=== PATIENT | female | born 1965 | race African-American/Black ===

== ENCOUNTER 2017-04-01 14:15 | Emergency (ER) | payer SELFPAY ==
[~2017-04-01 14:15] MED LIST: ABILIFY; ABILIFY15 MG PO; ADVAIR 2501 DISK W/D IH; ADVAIR 25028 BLISTER INH; ALBUTEROL SULF8.5 GM IH; ALBUTEROL2.5 MG/3 M IH; ARIMIDEX1 M1 PO; ARIMIDEX1 MG PO; BACTRIM DS TABL1 TAB PO; BIPOLAR MEDS; BUSPAR10 MG PO; CLONAZEPAM0.5 M2 PO; COMPAZINE10 MG PO; CYCLOBENZAPRINE10 M1 PO; CYCLOBENZAPRINE10 MG PO; DOXEPIN HCL25 M1 PO; FAMOTIDINE20 M1 PO; FERROUS SULFATE; FLAGYL500 MG PO; FLEXERIL10 MG PO; HYDROXAZINE; IRON1 TAB PO; IRON325 M3 PO; KEFLEX500 M4 PO; MACROBID 100 M100 MG PO; MEDROL4 MG/DOSE- PO; NORVASC5 M2 PO; OMEPRAZOLE20 M3 PO; PERCOCET 5-3251 EACH PO; PERCOCET 5/3251 TAB PO; PERCOCET 5MG/AP1 TAB PO; PRISTIQ100 MG PO; PROVENTIL HFA6.7 GM IH; REMERON15 M1 PO; RISPERDAL1 M1 PO; SINGULAIR10 MG PO; SKELAXIN800 M3 PO; TOPAMAX50 M3 PO; TRAMADOL HCL50 M2 PO; ZOFRAN4 MG PO; [UNRECOGNIZED DRUG - OTHER]; [UNRECOGNIZED DRUG - OTHER] PO
[2017-04-01 14:55] LABS: URINE BILIRUBIN NEGATIVE (NEG); URINE BLOOD NEGATIVE (NEG); URINE GLUCOSE (UA) NEGATIVE (NEG); URINE KETONE NEGATIVE (NEG); URINE LEUKOCYTE ESTERASE POSITIVE (NEG); URINE NITRITE NEGATIVE (NEG); URINE PH 6.5 (5.0-8.0); URINE PROTEIN NEGATIVE (NEG)
[2017-04-01 14:56] LABS: URINE APPEARANCE CLEAR; URINE COLOR YELLOW
[2017-04-01 15:03] LABS: URINE EPITHELIAL CELLS 0 /[HPF] (0-10); URINE RBC 0 /[HPF] (0-5); URINE WBC 0-3 /[HPF] (0-5)
[2017-04-01] MEDS ORDERED: BREO ELLIPTA 11 EAC1 INH (15:22)
[2017-04-01] MEDS ORDERED: AMITRIPTYLINE H25 M1 PO (15:22)
[2017-04-01 15:45] LABS: BASO % 0.3 % (0-2); EOS % 1.9 % (0-7); EOSINOPHIL ABSOLUTE COUNT 0.2 tho/cmm (0.0-0.7); HCT-HEMATOCRIT 39.4 % (34.0-49.0); HGB-HEMOGLOBIN 12.7 gm/dl (12.0-15.5); IMMATURE GRANULOCYTES ABSOLUTE 0.04 tho/cmm (0-0.03); IMMATURE GRANULOCYTES PERCENT 0.4 % (0-0.3); LYMPH % 33.1 % (20-45); LYMPH ABSOLUTE COUNT 3.6 tho/cmm (0.8-4.5); MCH (MEAN CORPUSCULAR HGB) 22.9 pg (28.0-32.0); MCHC MEAN CORPUSCULAR HGB CONC 32.2 % (32.0-36.0); MEAN PLATELET VOLUME 9.2 cmc (9.4-12.4); MONO % 5.3 % (0-12); MONOCYTE ABSOLUTE COUNT 0.6 tho/cmm (0.0-1.2); NEUTROPHIL ABSOLUTE COUNT 6.4 tho/cmm (1.6-8.0); NEUTROPHIL-AUTOMATED 6.4 tho/cmm (1.6-8.0); PLATELET COUNT 334 tho/cmm (150-450); RED BLOOD COUNT 5.55 mil/cmm (4.00-5.20); RED CELL DISTRIBUTION WIDTH 15.5 % (12.4-16.4); WHITE BLOOD COUNT 10.8 tho/cmm (4.0-10.0)
[2017-04-01 16:01] LABS: ALBUMIN 3.7 g/dl (3.5-5.0); ALKALINE PHOSPHATASE 90 U/L (33-138); ALT/SGPT 18 U/L (12-78); ANION GAP 11 mmol/L (0-20); AST/SGOT 16 U/L (10-40); BILIRUBIN,TOTAL 0.2 mg/dl (0-1.5); BLOOD UREA NITROGEN 17 mg/dl (6-24); CALCIUM 9.6 mg/dl (8.5-10.5); CARBON DIOXIDE-VENOUS 26 mmol/L (22-32); CHLORIDE 107 mmol/l (96-110); CREATININE 1.21 mg/dl (0.50-1.10); GLUCOSE 91 mg/dL (70-110); LIPASE 200 U/L (73-393); POTASSIUM 4.1 mmol/L (3.7-5.1); SODIUM 140 mmol/L (135-145); eGFR VALUE FOR BLACK 60 mL/Min
[2017-04-01] MEDS ORDERED: PERCOCET 5-3251 EACH PO (17:54)
[2017-07-09] MEDS ORDERED: COLACE100 M1 PO (09:34)
[2017-07-09] MEDS ORDERED: PROVENTIL HFA6.7 G1 (09:37)
[2017-07-09] MEDS ORDERED: BREO ELLIPTA 11 EAC1 INH (09:38)
[2017-07-09] MEDS ORDERED: ARIMIDEX1 M1 PO (09:40)
[2017-07-09] MEDS ORDERED: PERCOCET 5-3251 EACH PO (10:00)
[2017-07-09] MEDS ORDERED: ZOFRAN4 M2 PO (10:16)
[2017-07-09] MEDS ORDERED: DOXEPIN HCL25 M1 PO (10:17)
[2017-07-09] MEDS ORDERED: PROAIR HFA8.5 GM INH (10:36)
[2017-07-09] MEDS ORDERED: BRINTELLIX10 M1 PO (10:43)
[2017-07-09] MEDS ORDERED: ATIVAN0.5 M1 PO (10:44)
[2017-07-09] MEDS ORDERED: ALBUTEROL2.5 MG/3 M NEB (10:47)
[2017-07-09] MEDS ORDERED: BENTYL10 M1 PO (12:25)
== END 2017-04-01 18:13 ==
LOC: EDMED 14:15
PROVIDERS: Emergency Medicine
DX: N28.9 Disorder of kidney and ureter, unspecified (principal); R10.9 Unspecified abdominal pain; I10 Essential (primary) hypertension; Z85.43 Personal history of malignant neoplasm of ovary; Z90.710 Acquired absence of both cervix and uterus; Z98.890 Other specified postprocedural states; Z79.899 Other long term (current) drug therapy
CPT/HCPCS: J2270; J2405; J7030

== ENCOUNTER 2017-04-13 15:29 | Emergency (ER) | payer SELFPAY ==
[~2017-04-13 15:29] MED LIST changes: +AMITRIPTYLINE H25 M1 PO; +BREO ELLIPTA 11 EAC1 INH
[2017-04-13 16:13] LABS: URINE BILIRUBIN NEGATIVE (NEG); URINE BLOOD NEGATIVE (NEG); URINE GLUCOSE (UA) NEGATIVE (NEG); URINE KETONE NEGATIVE (NEG); URINE LEUKOCYTE ESTERASE POSITIVE (NEG); URINE NITRITE NEGATIVE (NEG); URINE PROTEIN NEGATIVE (NEG); URINE SPECIFIC GRAVITY 1.005 (1.003-1.030)
[2017-04-13 16:15] LABS: URINE APPEARANCE HAZY; URINE COLOR YELLOW
[2017-04-13 16:23] LABS: URINE BACTERIA 1+; URINE EPITHELIAL CELLS 0-1 /[HPF] (0-10); URINE RBC 0 /[HPF] (0-5)
[2017-04-13 16:29] LABS: BASO % 0.3 % (0-2); EOS % 1.7 % (0-7); EOSINOPHIL ABSOLUTE COUNT 0.2 tho/cmm (0.0-0.7); HCT-HEMATOCRIT 37.4 % (34.0-49.0); HGB-HEMOGLOBIN 11.9 gm/dl (12.0-15.5); IMMATURE GRANULOCYTES ABSOLUTE 0.02 tho/cmm (0-0.03); IMMATURE GRANULOCYTES PERCENT 0.2 % (0-0.3); LYMPH % 32.9 % (20-45); LYMPH ABSOLUTE COUNT 3.4 tho/cmm (0.8-4.5); MCH (MEAN CORPUSCULAR HGB) 22.7 pg (28.0-32.0); MCHC MEAN CORPUSCULAR HGB CONC 31.8 % (32.0-36.0); MCV (MEAN CELL VOLUME) 71.4 fl (82.0-96.0); MEAN PLATELET VOLUME 8.7 cmc (9.4-12.4); MONO % 5.6 % (0-12); MONOCYTE ABSOLUTE COUNT 0.6 tho/cmm (0.0-1.2); NEUTROPHIL ABSOLUTE COUNT 6.1 tho/cmm (1.6-8.0); NEUTROPHIL-AUTOMATED 6.1 tho/cmm (1.6-8.0); NEUTROPHILS % 59.3 % (40-80); PLATELET COUNT 318 tho/cmm (150-450); RED BLOOD COUNT 5.24 mil/cmm (4.00-5.20); RED CELL DISTRIBUTION WIDTH 15.3 % (12.4-16.4); WHITE BLOOD COUNT 10.3 tho/cmm (4.0-10.0)
[2017-04-13 16:39] LABS: ANION GAP 11 mmol/L (0-20); BLOOD UREA NITROGEN 18 mg/dl (6-24); CALCIUM 9.5 mg/dl (8.5-10.5); CARBON DIOXIDE-VENOUS 25 mmol/L (22-32); CHLORIDE 109 mmol/l (96-110); CREATININE 0.96 mg/dl (0.50-1.10); GLUCOSE 88 mg/dL (70-110); POTASSIUM 3.7 mmol/L (3.7-5.1); SODIUM 141 mmol/L (135-145); eGFR VALUE FOR BLACK 79 mL/Min
[2017-04-13] MEDS ORDERED: KEFLEX500 M4 PO (18:04)
[2017-04-13] MEDS ORDERED: PERCOCET 5-3251 EACH PO (18:04)
[2017-07-09] MEDS ORDERED: COLACE100 M1 PO (09:34)
[2017-07-09] MEDS ORDERED: PROVENTIL HFA6.7 G1 (09:37)
[2017-07-09] MEDS ORDERED: BREO ELLIPTA 11 EAC1 INH (09:38)
[2017-07-09] MEDS ORDERED: ARIMIDEX1 M1 PO (09:40)
[2017-07-09] MEDS ORDERED: PERCOCET 5-3251 EACH PO (10:00)
[2017-07-09] MEDS ORDERED: ZOFRAN4 M2 PO (10:16)
[2017-07-09] MEDS ORDERED: DOXEPIN HCL25 M1 PO (10:17)
[2017-07-09] MEDS ORDERED: PROAIR HFA8.5 GM INH (10:36)
[2017-07-09] MEDS ORDERED: BRINTELLIX10 M1 PO (10:43)
[2017-07-09] MEDS ORDERED: ATIVAN0.5 M1 PO (10:44)
[2017-07-09] MEDS ORDERED: ALBUTEROL2.5 MG/3 M NEB (10:47)
[2017-07-09] MEDS ORDERED: BENTYL10 M1 PO (12:25)
== END 2017-04-13 19:39 ==
LOC: EDMED 15:29
PROVIDERS: Emergency Medicine
DX: N39.0 Urinary tract infection, site not specified (principal); J44.9 Chronic obstructive pulmonary disease, unspecified; J45.909 Unspecified asthma, uncomplicated; Z88.6 Allergy status to analgesic agent; Z88.5 Allergy status to narcotic agent; Z88.1 Allergy status to other antibiotic agents; Z91.040 Latex allergy status; Z85.53 Personal history of malignant neoplasm of renal pelvis; Z85.819 Personal history of malignant neoplasm of unspecified site of lip, oral cavity, and pharynx
CPT/HCPCS: J0696; J1170; J2405; J7030